=== PATIENT | female | born 1950 | race Caucasian/White ===

== ENCOUNTER 2017-04-23 10:38 | Inpatient (IN) | payer OTHER ==
[2017-04-23] MEDS ORDERED: NS 1,000 ML IV ONE ×2 (11:09→11:56)
[2017-04-23] MEDS ORDERED: PROMETHAZINE HCL 25 MG/ML INJ IVP ONE (11:12)
[2017-04-23] MEDS ORDERED: INSULIN REGULAR HUMAN 100 UNIT/ML IVP ONE ×2 (11:14→12:01)
[2017-04-23 11:20] LABS: ABSOLUTE IMMATURE GRANULOCYTES 0.09 10^3/uL (0.00-0.10); ADD DIFF? NO; ADD MORPH? NO; ADD SCAN? NO; ATYPICAL LYMPHOCYTE FLAG 0 (0-99); FRAGMENT RBC FLAG 0 (0-99); HEMATOCRIT 48.4 % (38.0-47.0); HEMOGLOBIN 15.7 g/dL (12.6-16.3); LEFT SHIFT FLG 0 (0-99); LIPEMIA HEMOLYSIS FLAG 80 (0-99); MEAN CELL HEMOGLOBIN 30.4 pg (27.9-34.1); MEAN CELL HEMOGLOBIN CONCENTR. 32.4 g/dL (32.4-36.7); MEAN CELL VOLUME 93.8 fL (81.5-99.8); MEAN PLATELET VOLUME 11.5 fL (8.7-11.7); PLATELET CLUMPS FLAG 20 (0-99); PLATELET COUNT 308 10^3/uL (150-400); RED BLOOD CELL COUNT 5.16 10^6/uL (4.18-5.33); RED CELL DISTRIBUTION WIDTH 13.8 % (11.5-15.2)
--- NOTE | 2017-04-23 11:20 | EDPHY ---
H & P Smoking Status: Former smoker Time Seen by Provider: 04/23/17 10:58 HPI/ROS: HPI: Ms. Parra is a 67 yrs, female who presents with Chief Complaint: High blood sugar Location: Quality: High blood sugar Duration: Unknown Signs and Symptoms: Positive nausea, positive increased thirst, positive fatigue, no vomiting, no abdominal pain, no chest pain, no shortness of breath , no dysuria, no polyuria Timing: constant Severity: moderate Context: Patient was sent over from urgent care clinic as serum glucose 397 and CO 11 from yesterday's labs. Seen yesterday for fatigue, increased thick mucus in mouth, increased thirst and "just not feeling right." no family history of diabetes. Modifying Factors: Comment: ROS: Eyes: No blurred vision Respiratory: No shortness of breath, no cough Cardiovascular: No chest pain Gastrointestinal: + nausea, no vomiting no diarrhea Genitourinary: No dysuria Extremities: No myalgias Neurologic: No weakness, no numbness Skin: No rashes Hematologic: No bruising, no bleeding MEDICAL/SURGICAL HISTORY: Hypothyroidism, Hysterectomy (Erlinda Morrison) Social History: . Retired. (Erlinda Morrison) Physical Exam: CONSTITUTIONAL: obese white adult female, awake and alert, no obvious distress HEENT: Atraumatic and normocephalic, PERRL, EOMI. Tympanic membranes clear. Oropharynx clear, no exudate and dry oral mucosa. Airway patent. No lymphadenopathy. No meningismus. Cardiovascular: Normal S1/S2, tachycardia, regular rhythm, without murmur rub or gallop. PULMONARY/CHEST: Symmetrical and nontender. Clear to auscultation bilaterally Good air movement. No accessory muscle usage. ABDOMEN: Soft, obesely round, nondistended, nontender, no rebound, no guarding , no peritoneal signs, no masses or organomegaly. No CVAT. EXTREMITIES: 2/2 pulses, no deformities, no clubbing, no cyanosis or edema. NEUROLOGICAL: no focal neuro deficits. GCS 15. SKIN: Warm and dry, pallor, no erythema. no rash. Good capillary refill. (Erlinda Morrison) Constitutional: Initial Vital Signs Temperature (C) 36.8 C 04/23/17 10:38 Heart Rate 108 H 04/23/17 10:38 Respiratory Rate 18 04/23/17 10:38 Blood Pressure 171/91 H 04/23/17 10:38 O2 Sat (%) 97 04/23/17 10:38 O2 Delivery Mode Room Air Allergies/Adverse Reactions: No Known Allergies Allergy (Unverified 04/23/17 10:39) Home Medications: Medication Instructions Recorded Aspirin [Aspirin 325 mg (*)] 325 mg PO DAILY PRN 04/23/17 Levothyroxine [Synthroid 112 mcg 112 mcg PO DAILY06 04/23/17 (*)] Medical Decision Making ED Course/Re-evaluation: labs, UA, IVF, IV medications evaluate for DKA. 11:30 Given 1 liter NS, IV Promethazine and IV 10 units regular insulin 11:45 serum glc > 600, CO low, Potassium 4.7; start insulin gtt 12:18 ED decision for admission consult for DKA spoke with hospitalist, Dr. Kessler I spent a total of 38 minutes of critical care time in obtaining history, performing a physical exam, bedside monitoring of interventions, collecting and interpreting tests and discussion with consultants but not including time spent performing procedures. Diagnosis: DKA (Erlinda Morrison) Differential Diagnosis: Fatigue including but not limited to orthostatic causes including dehydration, blood loss, DKA, electrolyte imbalance, urinary tract infection. (Erlinda Morrison) Other Provider: Was involved in this patient's care and agree with the disposition. Patient is well appearing overall. (Farhan Parks) - Data Points Laboratory Results: Laboratory Results 04/23/17 11:07 04/23/17 11:07 04/23/17 04/23/17 04/23/17 11:25 11:07 11:07 WBC RBC Hgb Hct MCV MCH MCHC RDW Plt Count MPV Neut % (Auto) Lymph % (Auto) Blount % (Auto) Eos % (Auto) Baso % (Auto) Nucleat RBC Rel Count Absolute Neuts (auto) Absolute Lymphs (auto) Absolute Monos (auto) Absolute Eos (auto) Absolute Basos (auto) Absolute Nucleated RBC Immature Gran % Immature Gran # Sodium 141 mEq/L mEq/L (134-144) Potassium 4.7 mEq/L mEq/L (3.5-5.2) Chloride 108 mEq/L mEq/L (97-110) Carbon Dioxide < 5 mEq/l L* mEq/l (22-31) Anion Gap TNP BUN 24 mg/dL H mg/dL (7-23) Creatinine 1.1 mg/dL H mg/dL (0.6-1.0) Estimated GFR 49 Glucose 871 mg/dL H* mg/dL (70-100) Hemoglobin A1c Pending Estim Average Glucose Pending Calcium 10.0 mg/dL mg/dL (8.5-10.4) Phosphorus 5.2 mg/dL H mg/dL (2.5-4.5) Magnesium 2.3 mg/dL mg/dL (1.6-2.3) Beta-Hydroxybutyrate 10.10 mmol/L H mmol/L (0.02-0.27) TSH 0.399 uIU/mL L uIU/mL (0.465-4.680) Free T4 1.31 ng/dL ng/dL (0.59-2.19) 04/23/17 11:07 WBC 9.42 10^3/uL 10^3/uL (3.80-9.50) RBC 5.16 10^6/uL 10^6/uL (4.18-5.33) Hgb 15.7 g/dL g/dL (12.6-16.3) Hct 48.4 % H % (38.0-47.0) MCV 93.8 fL fL (81.5-99.8) MCH 30.4 pg pg (27.9-34.1) MCHC 32.4 g/dL g/dL (32.4-36.7) RDW 13.8 % % (11.5-15.2) Plt Count 308 10^3/uL 10^3/uL (150-400) MPV 11.5 fL fL (8.7-11.7) Neut % (Auto) 86.9 % H % (39.3-74.2) Lymph % (Auto) 5.9 % L % (15.0-45.0) Blount % (Auto) 5.9 % % (4.5-13.0) Eos % (Auto) 0.0 % L % (0.6-7.6) Baso % (Auto) 0.3 % % (0.3-1.7) Nucleat RBC Rel Count 0.0 % % (0.0-0.2) Absolute Neuts (auto) 8.18 10^3/uL H 10^3/uL (1.70-6.50) Absolute Lymphs (auto) 0.56 10^3/uL L 10^3/uL (1.00-3.00) Absolute Monos (auto) 0.56 10^3/uL 10^3/uL (0.30-0.80) Absolute Eos (auto) 0.00 10^3/uL L 10^3/uL (0.03-0.40) Absolute Basos (auto) 0.03 10^3/uL 10^3/uL (0.02-0.10) Absolute Nucleated RBC 0.00 10^3/uL 10^3/uL (0-0.01) Immature Gran % 1.0 % % (0.0-1.1) Immature Gran # 0.09 10^3/uL 10^3/uL (0.00-0.10) Sodium Potassium Chloride Carbon Dioxide Anion Gap BUN Creatinine Estimated GFR Glucose Hemoglobin A1c Estim Average Glucose Calcium Phosphorus Magnesium Beta-Hydroxybutyrate TSH Free T4 Medications Given: Discontinued Medications Sodium Chloride (Ns) 1,000 mls @ 0 mls/hr IV ONCE ONE; Wide Open PRN Reason: Protocol Stop: 04/23/17 11:10 Last Admin: 04/23/17 11:24 Dose: 1,000 mls Sodium Chloride (Ns) 1,000 mls @ 0 mls/hr IV ONCE ONE; Wide Open PRN Reason: Protocol Stop: 04/23/17 11:57 Last Admin: 04/23/17 12:10 Dose: 1,000 mls Insulin Human Regular 100 unit / Miscellaneous Medication 1 ea/ Sodium Chloride 101 mls @ 6 mls/hr IV EDNOW ONE PRN Reason: Protocol Stop: 04/24/17 04:45 Last Admin: 04/23/17 13:01 Dose: 101 mls Insulin Human Regular (Humulin R) 5 unit IVP EDNOW ONE Stop: 04/23/17 11:15 Last Admin: 04/23/17 11:25 Dose: 5 units Insulin Human Regular (Humulin R) 5 unit IVP EDNOW ONE Stop: 04/23/17 12:02 Last Admin: 04/23/17 12:10 Dose: 5 units Promethazine HCl (Phenergan) 12.5 mg IVP ONCE ONE Stop: 04/23/17 11:13 Last Admin: 04/23/17 11:25 Dose: 12.5 mg Departure - Departure Disposition: [facility] Acute Clinical Impression: DKA (diabetic ketoacidoses) Qualifiers: Diabetes mellitus type: type 1 Diabetes mellitus complication detail: without coma Qualified Code(s): E10.10 - Type 1 diabetes mellitus with ketoacidosis without coma Condition: Critical
[2017-04-23 11:34] LABS: CHLORIDE 108 mEq/L (97-110); CREATININE 1.1 mg/dL (0.6-1.0); GLOMERULAR FILTRATION RATE 49; MAGNESIUM 2.3 mg/dL (1.6-2.3); POTASSIUM 4.7 mEq/L (3.5-5.2); SODIUM 141 mEq/L (134-144)
[2017-04-23 11:55] LABS: CARBON DIOXIDE < 5 mEq/l (22-31)
[2017-04-23] MEDS ORDERED: INSULIN REGULAR HUMAN 100 UNIT, COSIGN. REQUIRED 1 EA in NS 100 ML IV ONE (11:56)
[2017-04-23 12:06] LABS: GLUCOSE 871 mg/dL (70-100)
[2017-04-23 13:31] LABS: COLOR PALE YELLOW; LEUKOCYTE ESTERASE,URINE NEGATIVE (NEGATIVE); NITRITE,URINE NEGATIVE (NEGATIVE)
[2017-04-23] MEDS ORDERED: ASPIRIN 325 MG TAB PO PRN (13:43)
[2017-04-23 13:45] LABS: MUCUS TRACE /lpf (NONE-1+)
[2017-04-23] MEDS ORDERED: NS W/ 20 KCl/L 1,000 ML IV SCH (13:45)
--- NOTE | 2017-04-23 14:24 | GHP ---
[f rep st] HISTORY AND PHYSICAL DATE OF ADMISSION: 04/23/2017 CHIEF COMPLAINT: Fatigue. HISTORY: Hermes is a 67-year-old female who has been feeling fatigued for 1 week. She was seen in Urgent Care yesterday and some laboratory studies were drawn. She was called today that her glucose was 397 and her bicarb was 11 and told to come to the emergency room. She complains of 1-week of fatigue with massive amount of thirst and polyuria. She is just not feeling right. She denies any weight loss. There has been no nausea, vomiting, abdominal pain or fever. She has only been feeling abnormal for 1 week. PAST MEDICAL HISTORY: Hypothyroidism. PAST SURGICAL HISTORY: Hysterectomy. MEDICATIONS: Please see computer record for full detailed list. ALLERGIES: No known drug allergies. SOCIAL HISTORY: No smoking. No alcohol. She lives with her . REVIEW OF SYSTEMS: Complete review of systems obtained. Review of systems is negative. Constitutional, HEENT, GI, pulmonary, cardiovascular, , hematology , skin, muscular, endocrine, psychiatric, except for positives and negatives as in HPI. FAMILY HISTORY: Reviewed and noncontributory to presenting complaint. PHYSICAL EXAMINATION: GENERAL: Well-developed, well-nourished female, in no acute distress. VITAL SIGNS: Temperature is 36.8, pulse 108, respirations 18, blood pressure 171/91, saturating 97% on room air. EYE EXAMINATION: Normal conjunctiva. Pupils equal and reactive to light. ENT: Normal ears, nose. Hearing intact. Normal teeth. Oropharynx moist. NECK: Trachea midline. No thyromegaly. CHEST: Normal effort. LUNGS: Clear to auscultation bilaterally. CARDIOVASCULAR: Regular rhythm. No murmur. EXTREMITIES: No lower extremity edema. ABDOMEN: Soft, nontender. No hepatosplenomegaly. SKIN : Warm, dry, intact. No rash. MUSCULOSKELETAL: No cyanosis or clubbing. Strength 5/5 upper and lower extremities. NEURO: Cranial nerves intact. Normal sensation to light touch. PSYCH ASSESSMENT: Alert and oriented x3. Normal mood and affect. Normal judgment. Normal insight. Normal memory. LABORATORY DATA: White count 9.42, hematocrit 48.4, platelets 308. Sodium 141 , potassium 4.7, chloride 108, bicarb less than 5. Anion gap 28, BUN 24, creatinine 1.1. Glucose 871, TSH 0.399. Free T4 is 1.3. ASSESSMENT AND PLAN: 1. Diabetic ketoacidosis. This appears to be a new diagnosis of diabetes. Will continue her on insulin drip. Aggressive IV fluids and frequent laboratory studies to ensure resolution of the gap. Will check a hemoglobin A1c. Will rule out infection including chest x-ray and urinalysis. 2. Hypothyroidism. Continue Synthroid. 3. Metabolic acidosis. Will check an ABG and consider an amp of bicarb for pH less than 7. 4. Morbid obesity. BMI 41. 5. CODE STATUS: Full. ADMISSION STATUS: 1. Will admit to inpatient for severe DKA requiring ICU admission 2. DVT prophylaxis. She is high risk. Will place her on subcu Lovenox. /[id number]/MODL MTDD
[2017-04-23] MEDS: INSULIN REGULAR HUMAN 100 UNIT in NS 100 ML IV SCH ×2 (14:45→18:59)
--- NOTE | 2017-04-23 15:55 | GCON ---
[f rep st] CONSULTATION Corrected report PULMONARY/CRITICAL CARE CONSULTATION DATE OF CONSULTATION: 04/23/2017 REFERRING PHYSICIAN: Alea Kessler MD REASON FOR REFERRAL: Evaluation and management of diabetic ketoacidosis. HISTORY OF PRESENT ILLNESS: Ms. Parra is a 67-year-old woman with no prior history of diabetes who has been feeling fatigued for about a week. She was seen in urgent care yesterday and had laboratory studies drawn. She was called back because it was found that her glucose was 397 and her bicarb was 11. She came to the emergency department, and reports that she continued to have fatigue, thirst, and polyuria. She has not had any weight loss. She denies nausea or vomiting. She has not had any abdominal pain. She has received IV fluids and reports that she is feeling a bit better. Her mouth still feels very dry. PAST MEDICAL HISTORY: Hypothyroidism. MEDICATIONS: At the time of admission include: Levothyroxine and aspirin. ALLERGIES: None. SOCIAL HISTORY: The patient does not smoke or drink. REVIEW OF SYSTEMS: A 10-point review of systems adds nothing to the history of present illness. FAMILY HISTORY: Unremarkable. PHYSICAL EXAMINATION: GENERAL: The patient is awake, alert, in no acute distress. VITAL SIGNS: Blood pressure is 147/75 with a heart rate of 99, she is afebrile, oxygen saturations are 100% on room air. HEENT: Normocephalic and atraumatic. Her oral mucosa is dry. No icterus. NECK: No adenopathy. Trachea is midline. CHEST: Clear to auscultation. CARDIAC: Regular rate and rhythm without murmur. ABDOMEN: Soft, nontender. Bowel sounds are present. EXTREMITIES: No clubbing, cyanosis, or edema. NEURO: The patient is awake and alert. She has no gross motor or sensory deficits. LABORATORY: At presentation several hours ago her chemistry group showed a glucose of 871 with a carbon dioxide level less than 5. Her beta hydroxybutyrate is 10.1. Her phosphorus is 5.2 and her potassium is 4.7. Her TSH is 0.4. Repeat glucose is 560. CBC is unremarkable. A urinalysis shows ketones and just 1 to 3 white blood cells. A chest x-ray shows no acute infiltrates. Images reviewed. ASSESSMENT: Diabetic acute acidosis. This is an unusual case, presenting with new diabetic ketoacidosis with no prior history of diabetes. The patient has begun to respond to treatment, which has included an IV insulin drip, some IV insulin boluses, and 2 L of IV fluids. RECOMMENDATIONS: Continue IV fluids. I think she can start to take p.o., as she is likely still dehydrated. Her insulin drip will be continued under protocol, and she will be monitored closely with frequent labs. I will start her on a diet, which should allow us to continue to give insulin to help close her metabolic acidosis. /[id number]/MODL Ibeth worktype, 04/25/17, elkin SIMS
[2017-04-23 16:38] LABS: ANION GAP 21 mEq/L (8-16); CALCIUM 9.7 mg/dL (8.5-10.4); CHLORIDE 117 mEq/L (97-110); GLOMERULAR FILTRATION RATE 55; GLUCOSE 427 mg/dL (70-100); POTASSIUM 3.7 mEq/L (3.5-5.2); SODIUM 144 mEq/L (134-144)
[2017-04-23 16:42] LABS: CARBON DIOXIDE 6 mEq/l (22-31)
[2017-04-23] MEDS ORDERED: D5W 1,000 ML IV SCH (18:22)
[2017-04-23 20:17] LABS: ANION GAP 13 mEq/L (8-16); CALCIUM 9.1 mg/dL (8.5-10.4); CARBON DIOXIDE 12 mEq/l (22-31); CHLORIDE 119 mEq/L (97-110); CREATININE 0.8 mg/dL (0.6-1.0); GLOMERULAR FILTRATION RATE > 60; GLUCOSE 273 mg/dL (70-100); POTASSIUM 3.5 mEq/L (3.5-5.2); SODIUM 144 mEq/L (134-144)
[2017-04-24] MEDS: INSULIN REGULAR HUMAN 100 UNIT in NS 100 ML IV SCH (00:15)
[2017-04-24 00:50] LABS: ANION GAP 8 mEq/L (8-16); CALCIUM 9.2 mg/dL (8.5-10.4); CARBON DIOXIDE 14 mEq/l (22-31); CHLORIDE 118 mEq/L (97-110); CREATININE 0.7 mg/dL (0.6-1.0); GLOMERULAR FILTRATION RATE > 60; GLUCOSE 108 mg/dL (70-100); POTASSIUM 3.3 mEq/L (3.5-5.2); SODIUM 140 mEq/L (134-144)
[2017-04-24] MEDS ORDERED: PROTOCOL POTASSIUM 1 DOSE MISC PRN (01:26)
[2017-04-24] MEDS: D5W 1/2 NS 1,000 ML IV SCH ×2 (01:27→05:55)
[2017-04-24] MEDS ORDERED: POTASSIUM CL 10 MEQ TAB PO ONE ×3 (01:34→21:45)
[2017-04-24 04:40] LABS: ALANINE AMINOTRANSFERASE 31 IU/L (9-52); ALBUMIN 2.7 g/dL (3.5-5.0); ALKALINE PHOSPHATASE 86 IU/L (38-126); ANION GAP 6 mEq/L (8-16); ASPARTATE AMINOTRANSFERASE 18 IU/L (14-46); BILIRUBIN,TOTAL 0.7 mg/dL (0.1-1.4); BILIRUBIN-CONJUGATED 0.1 mg/dL (0.0-0.5); BILIRUBIN-UNCONJUGATED 0.6 mg/dL (0.0-1.1); CALCIUM 9.2 mg/dL (8.5-10.4); CARBON DIOXIDE 15 mEq/l (22-31); CHLORIDE 117 mEq/L (97-110); CREATININE 0.7 mg/dL (0.6-1.0); GLOMERULAR FILTRATION RATE > 60; GLUCOSE 67 mg/dL (70-100); MAGNESIUM 1.9 mg/dL (1.6-2.3); POTASSIUM 3.1 mEq/L (3.5-5.2); SODIUM 138 mEq/L (134-144); TOTAL PROTEIN 5.2 g/dL (6.3-8.2)
[2017-04-24 05:24] LABS: % IMMATURE GRANULYOCYTES 0.5 % (0.0-1.1); ABSOLUTE IMMATURE GRANULOCYTES 0.05 10^3/uL (0.00-0.10); ADD DIFF? NO; ADD MORPH? NO; ADD SCAN? NO; ATYPICAL LYMPHOCYTE FLAG 0 (0-99); FRAGMENT RBC FLAG 0 (0-99); HEMATOCRIT 33.7 % (38.0-47.0); HEMOGLOBIN 11.6 g/dL (12.6-16.3); LEFT SHIFT FLG 0 (0-99); LIPEMIA HEMOLYSIS FLAG 90 (0-99); MEAN CELL HEMOGLOBIN 30.3 pg (27.9-34.1); MEAN CELL HEMOGLOBIN CONCENTR. 34.4 g/dL (32.4-36.7); MEAN PLATELET VOLUME 10.7 fL (8.7-11.7); PLATELET CLUMPS FLAG 0 (0-99); PLATELET COUNT 207 10^3/uL (150-400); RED BLOOD CELL COUNT 3.83 10^6/uL (4.18-5.33); RED CELL DISTRIBUTION WIDTH 13.6 % (11.5-15.2)
[2017-04-24] MEDS: LEVOTHYROXINE 112 MCG TAB PO SCH (05:50)
[2017-04-24 08:39] LABS: ANION GAP 7 mEq/L (8-16); CALCIUM 8.7 mg/dL (8.5-10.4); CARBON DIOXIDE 16 mEq/l (22-31); CHLORIDE 117 mEq/L (97-110); CREATININE 0.7 mg/dL (0.6-1.0); GLOMERULAR FILTRATION RATE > 60; GLUCOSE 116 mg/dL (70-100); POTASSIUM 3.9 mEq/L (3.5-5.2); SODIUM 140 mEq/L (134-144)
[2017-04-24] MEDS ORDERED: INSULIN GLARGINE 100 UNITS/ML SYRINGE SC SCH (09:15)
[2017-04-24] MEDS ORDERED: POTASSIUM/SODIUM PHOSPHATE 1 PKT PO ONE (09:17)
[2017-04-24] MEDS ORDERED: D50W 25 GM/50 ML SYR IVP PRN (09:18)
[2017-04-24] MEDS: ENOXAPARIN 40 MG/0.4 ML SYR SC SCH (09:39)
[2017-04-24] MEDS: INSULIN REGULAR HUMAN 100 UNIT/ML SC SCH ×3 (12:35→21:56)
[2017-04-24 13:54] VITALS: RESP 16
[2017-04-24] MEDS: POTASSIUM/SODIUM PHOSPHATE 1 PKT PO SCH ×3 (14:00→23:44)
--- NOTE | 2017-04-24 14:55 | HOSPPROG ---
Hospitalist Progress Note Assessment/Plan: * DKA - resolved -DC insulin gtt and IVF * New diagnosis diabetes - likely late onset type 1 given DKA -start Lantus -monitor as inpatient for glucose control and education -HgA1c pending * Morbid obesity BMI 41 * Hypothyroid -continue Synthroid Subjective: No new complaints. Feels better Objective: Vital Signs Temp Pulse Resp BP Pulse Ox 37.1 C 87 16 158/83 H 97 04/24/17 13:52 04/24/17 13:52 04/24/17 13:52 04/24/17 13:52 04/24/17 13:52 Laboratory Results 04/24/17 05:00 04/24/17 08:10 04/23/17 04/24/17 04/25/17 05:59 05:59 05:59 Intake Total 6976 708 Output Total 1900 Balance 5076 708 - Physical Exam Constitutional: no apparent distress, appears nourished, not in pain Cardiovascular: regular rate and rhythym, no murmur, rub, or gallop Respiratory: no respiratory distress, no rales or rhonchi, clear to auscultation Gastrointestinal: normoactive bowel sounds, soft, non-tender abdomen, no palpable masses Skin: no rashes or abrasions, no fluctuance, no induration Neurologic: AAOx3, sensation intact bilaterally Psychiatric: interacting appropriately, not anxious, not encephalopathic, thought process linear ICD10 Worksheet Patient Problems: Problems Problem Status Onset DKA (diabetic ketoacidoses) Acute
[2017-04-24 18:38] LABS: POTASSIUM 3.9 mEq/L (3.5-5.2)
[2017-04-25 04:30] LABS: % IMMATURE GRANULYOCYTES 0.5 % (0.0-1.1); ABSOLUTE IMMATURE GRANULOCYTES 0.03 10^3/uL (0.00-0.10); ADD DIFF? NO; ADD MORPH? NO; ADD SCAN? NO; ATYPICAL LYMPHOCYTE FLAG 0 (0-99); FRAGMENT RBC FLAG 0 (0-99); HEMATOCRIT 36.7 % (38.0-47.0); HEMOGLOBIN 12.6 g/dL (12.6-16.3); LEFT SHIFT FLG 0 (0-99); LIPEMIA HEMOLYSIS FLAG 90 (0-99); MEAN CELL HEMOGLOBIN 30.2 pg (27.9-34.1); MEAN CELL HEMOGLOBIN CONCENTR. 34.3 g/dL (32.4-36.7); PLATELET CLUMPS FLAG 0 (0-99); PLATELET COUNT 202 10^3/uL (150-400); RED BLOOD CELL COUNT 4.17 10^6/uL (4.18-5.33); RED CELL DISTRIBUTION WIDTH 13.6 % (11.5-15.2)
[2017-04-25 04:50] LABS: ANION GAP 6 mEq/L (8-16); CALCIUM 8.7 mg/dL (8.5-10.4); CARBON DIOXIDE 18 mEq/l (22-31); CHLORIDE 111 mEq/L (97-110); CREATININE 0.7 mg/dL (0.6-1.0); GLOMERULAR FILTRATION RATE > 60; GLUCOSE 263 mg/dL (70-100); POTASSIUM 3.4 mEq/L (3.5-5.2); SODIUM 135 mEq/L (134-144)
[2017-04-25] MEDS: LEVOTHYROXINE 112 MCG TAB PO SCH (05:47)
[2017-04-25 07:40] VITALS: BP 142/83; PULSE 87; TEMP 98.9; O2SAT 95
[2017-04-25] MEDS: INSULIN REGULAR HUMAN 100 UNIT/ML SC SCH ×2 (07:59→12:57)
[2017-04-25] MEDS ORDERED: ASPIRIN EC 81 MG TAB PO SCH (09:00)
[2017-04-25] MEDS ORDERED: LISINOPRIL 5 MG TAB PO SCH (09:00)
[2017-04-25] MEDS ORDERED: INSULIN GLARGINE 100 UNITS/ML SYRINGE SC SCH (09:00)
[2017-04-25] MEDS: POTASSIUM/SODIUM PHOSPHATE 1 PKT PO SCH (09:02)
[2017-04-25] MEDS ORDERED: POTASSIUM CL 10 MEQ TAB PO ONE (11:10)
[2017-04-25] MEDS: ENOXAPARIN 40 MG/0.4 ML SYR SC SCH (13:00)
--- NOTE | 2017-04-25 14:40 | PDDCSUM ---
Discharge Summary Discharge Summary: DISCHARGE SUMMARY FOLLOW-UP ITEMS: Follow-up fasting blood glucose levels in outpatient primary care clinic this week, repeat blood pressure checks DATE OF ADMISSION: 04/23/2017 DATE OF DISCHARGE: 04/25/2017 DISCHARGE DIAGNOSES: 1. Acute diabetic ketoacidosis 2. New diagnosis diabetes mellitus 3. Morbid obesity with BMI 41 4. Acute kidney injury. 5. Acute metabolic acidosis CONSULTATIONS: Pulmonary Critical Care PROCEDURES / IMAGING: Chest x-ray demonstrating no infiltrate CHIEF COMPLAINT: Acute confusion, polyuria SUBJECTIVE: Patient is feeling well at time of discharge PHYSICAL EXAM ON DISCHARGE: Systolic blood pressure is 141-160, heart rate 80, afebrile overnight, satting well on room air, obese appearing woman, with lungs clear to auscultation bilaterally, bowel sounds are present without any abdominal tenderness to palpation LABS ON DISCHARGE: Hemoglobin A1c 12%, creatinine 0.7, potassium 3.4, serum sodium 135 HOSPITAL COURSE BY PROBLEM: 1. Acute diabetic ketoacidosis. Evidenced by positive beta hydroxybutyrate level, anion gap metabolic acidosis with a serum bicarbonate level less than 5, glucose level of 100, resulting in hypovolemia and overt acidosis with systemic effects. The patient received IV fluids and insulin drip. She was transitioned over to long-acting insulin after her gap closed. She was continued on Lantus and insulin sliding scale. She did not demonstrate any opening of her gap. Glucose level was maintained between 200-300 prior to discharge. 2. New diagnosis diabetes. Patient has new diagnosis diabetes mellitus as evidenced by hemoglobin A1c of 12%. Suspect that she will require combination of insulin as well as metformin to achieve a goal hemoglobin A1c. Consequently , she was initiated on Lantus, and this was up titrated to 15 units daily. She will also be initiated on metformin 500 mg twice daily, which can also be further up titrated. I am not discharging her on mealtime sliding scale, as her Lantus should provide her with short-term adequate control, and she should receive intensive outpatient diabetic teaching through her primary care provider office to ensure that she is administering sliding scale mealtime insulin appropriately. I have advised that she check daily fasting blood glucose levels as well as at bedtime. I recommended that she provide these levels to her primary care office on Tuesday when she follows up. I have also recommended that she initiate aspirin 81 mg daily for CAD prevention. She should also initiate lisinopril 2.5 mg daily for suspected underlying hypertension, which the patient also previously had no known diagnosis. Recommend outpatient blood pressure check and further titration as needed. She should also have outpatient lipid panel checked. 3. Acute kidney injury. Evidenced by creatinine level of 1.1 with BUN 24, secondary to hypovolemia in the setting of diabetic ketoacidosis. She received IV fluids in her serum creatinine level was 0.7 at time of discharge. 4. Morbid obesity. BMI 41, place patient high risk of worsening morbidity and/ or mortality. 5. Acute metabolic acidosis. Secondary to ketoacidosis, with serum bicarbonate level less than 5, requiring aggressive management as outlined above. Serum bicarbonate level was 18 at time of discharge. DISCHARGE MEDICATIONS: Please see official discharge medication reconciliation sheet in chart , lisinopril 2.5 mg daily, metformin 500 mg twice daily, Lantus 15 units daily, aspirin 81 mg daily DISCHARGE INSTRUCTIONS: Please follow-up at primary care provider office this Tuesday as scheduled. TIME SPENT: Greater than 30 minutes were spent on direct patient care, as well as discharge planning and preparation.
== END 2017-04-25 13:00 | disposition home or self-care (01) | DRG 638 ==
LOC: F2N 14:18 → F1N 04-24 13:19
PROVIDERS: ADMIT Internal Medicine; ATTEND Internal Medicine
DX: E10.10 Type 1 diabetes mellitus with ketoacidosis without coma (principal); N17.9 Acute kidney failure, unspecified; E66.01 Morbid (severe) obesity due to excess calories; Z68.41 Body mass index [BMI] 40.0-44.9, adult; E03.9 Hypothyroidism, unspecified
CPT/HCPCS: 82947-QW; 96365; 97161-GP; 97165-GO; G8978-GP-CH; G8979-GP-CH; G8980-GP-CH; G8987-GO-CI; G8988-GO-CI; G8989-GO-CH; J1650; J1815; J2550